=== PATIENT | male | born 2000 | race Caucasian/White ===

== ENCOUNTER 2019-08-29 12:18 | Emergency (ER) | payer OTHER ==
[~2019-08-29] VITALS: Ht 190.5 cm; Wt 89.9 kg
[2019-08-29] MEDS ORDERED: TETRACAINE 0.5% OPHTH SOLN 4ML OD ONE (13:00)
[2019-08-29] MEDS ORDERED: FLUORESCEIN OPHTH 1 MG STRIP OD ONE (13:00)
[2019-08-29] MEDS ORDERED: CILO0.3S OD (13:48)
[2019-08-29 13:53] VITALS: BP 121/69
== END 2019-08-29 13:53 | disposition home or self-care (01) ==
LOC: M ED 12:18
DX: T15.11XA Foreign body in conjunctival sac, right eye, initial encounter (principal); X58.XXXA Exposure to other specified factors, initial encounter; Y92.89 Other specified places as the place of occurrence of the external cause

== ENCOUNTER 2021-08-13 10:34 | Emergency (ER) | payer OTHER ==
[~2021-08-13] VITALS: Ht 190.5 cm; Wt 97.7 kg
[~2021-08-13 10:34] MED LIST: CILO0.3S OD
[2021-08-13 11:51] VITALS: BP 121/65
== END 2021-08-13 11:51 | disposition home or self-care (01) ==
LOC: M ED 10:34
DX: R04.0 Epistaxis (principal); Z98.890 Other specified postprocedural states